=== PATIENT | female | born 1980 | race Caucasian/White ===

== ENCOUNTER 2019-11-05 09:42 | Emergency (ER) | payer SELFPAY ==
--- NOTE | ~2019-11-05 | CT_ITS ---
EXAMINATION: CT abdomen pelvis w con DATE: 11/05/2019 11:45 INDICATION: Abdominal pain. Bloating. TECHNIQUE: Computed tomography (CT) of the abdomen and pelvis was performed with 100 mL Omnipaque 350 intravenous contrast. Automated exposure control and iterative reconstruction technique were employe d. The dose-length product was 1393.97 mGy-cm. COMPARISON: None. FINDINGS: The visualized portions of the lung bases demonstrate mild atelectasis. No pleural effusion . The heart size is normal. No pericardial effusion. The liver, spleen, gallbladder, pancreas, adrena l glands, and kidneys are normal. There is diverticulosis of the colon without evidence of diverticul itis. There are no dilated loops of bowel. The appendix is normal. There are no pathologically enlarg ed lymph nodes. There is no free intraperitoneal fluid. There is mild fat stranding at the root of th e small bowel mesentery. There is mild thoracolumbar spondylosis. There is mild chronic anterior wedg ing of T11-L1 vertebral bodies, likely physiologic. IMPRESSION: 1. Mild fat stranding at the root of the small bowel mesentery, which may be edema or inflammation (m esenteric panniculitis). Reviewed, dictated and finalized at location A. WORK IRONER IMPRESSION: 1. Mild fat stranding at the root of the small bowel mesentery, which may be ed drew or inflammation (mesenteric panniculitis).
--- NOTE | ~2019-11-05 | XR_ITS ---
EXAMINATION: XR chest 2V EXAM DATE: 11/05/2019 10:46 INDICATION: Chest tightness. Shortness of breath. TECHNIQUE: Frontal and lateral projections of the chest obtained and reviewed. There is no prior james dy for comparison. FINDINGS: The lungs are clear. There are no pleural effusions. The cardiomediastinal silhouette is within normal limits. There is no pneumothorax suspected. The bones and soft tissues are unremarkab le. IMPRESSION: No acute cardiopulmonary findings. Reviewed, dictated and finalized at location A. TH CARE ANALYST
[2019-11-05 09:46] VITALS: BP 145/89; PULSE 82; RESP 16; TEMP 36.2; O2SAT 100
--- NOTE | 2019-11-05 10:05 | ECG_ITS ---
Measurements Intervals [place] Rate: 70 P: 30 PA: 147 QRS: -1 QRSD: 85 T: 20 QT: 364 QTc: 393 Interpretive Statements SINUS RHYTHM BASELINE WANDER- I, II NORMAL ECG Electronically Signed On 11-05-2019 12:37:32 [employer]UCIBLE PACKER by Roel Phoenix D.O.
--- NOTE | 2019-11-05 10:10 | ED.ABDPAIN ---
HPI - Abdominal Pain General Chief Complaint: Abdominal Pain Stated Complaint: Abd Pain Time Seen by Provider: 11/05/19 09:57 Source: patient Mode of arrival: ambulatory Limitations: no limitations History of Present Illness HPI narrative: This is a 39 year old female that presents to the ER for abdominal bloating and pain x 1 week. Reports feeling of fullness. Reports epigastric pain that is worse after eating. Reports she has only been able to have small bowel movements. Reports the fullness in her abdomen is making her feel short of breath. Reports a tightness in her chest which is constant and worse with eating as well. Reports she has been doubling her PPI medication without relief. Denies fever, vomiting, dysuria or hematuria. Related Data Home Medications Medication Instructions Recorded Confirmed losartan 11/05/19 metformin 500 mg PO BID 11/05/19 omeprazole 11/05/19 Allergies Allergy/AdvReac Type Severity Reaction Status Date / Time No Known Allergies Allergy Verified 11/05/19 11:17 Review of Systems Review of Systems: Narrative: CONSTITUTIONAL: Denies fever CARDIOVASCULAR: Reports chest pain. Denies edema. RESPIRATORY: Reports dyspnea. GASTROINTESTINAL: Reports abdominal pain, nausea. Denies vomiting, or diarrhea. GENITOURINARY: Denies dysuria or hematuria. MUSCULOSKELETAL: Reports back pain, joint pain, and myalgia. All systems reviewed & are unremarkable except as noted in HPI and below PMFSH Past Medical History Medical History (Updated 11/05/19 @ 13:08 by Aubrie Darden PA-C) History of diabetes mellitus History of gastroesophageal reflux (GERD) History of hypertension Social History Social History (Updated 11/05/19 @ 10:10 by Aubrie Darden PA-C) Smoking status: Never smoker Substance use: former Substance use type: marijuana Exam Narrative: Exam Narrative: GENERAL: Well-appearing, obese, and in no acute distress. HEAD: Normocephalic, atraumatic. EYES: EOMI. CHEST: Clear to auscultation. No respiratory distress. No wheezes rales or rhonchi. Tender to palpation of the mid sternum HEART: Regular rate and rhythm. No murmur heard. Normal peripheral pulses. ABDOMEN: Soft, nondistended, normal active bowel sounds. Mild tenderness to palpation throughout the abdomen, without guarding. No CVA tenderness EXTREMITIES: Normal range of motion. No edema. SKIN: Warm, dry, no rash. NEURO: No focal deficits. Alert and oriented x3. PSYCH: Normal mood and affect Course Consultations Consultation #1: Spoke with Dr. Terrell about patient and work-up who recommends symptomatic management for now and for her to follow-up for further imaging and evaluation outpatient Date: 11/05/19 Time: 13:01 Vital Signs Vital signs: Vital Signs Temperature 97.1 F L 11/05/19 09:46 Pulse Rate 82 11/05/19 09:46 Respiratory Rate 16 11/05/19 09:46 Blood Pressure 145/89 H 11/05/19 09:46 Pulse Oximetry 100 11/05/19 09:46 Temperature 97.1 F L 11/05/19 09:46 Pulse Rate 82 11/05/19 09:46 Respiratory Rate 16 11/05/19 09:46 Blood Pressure 145/89 H 11/05/19 09:46 Pulse Oximetry 100 11/05/19 09:46 MDM - Abdominal Pain MDM Narrative Medical decision making narrative: Patient presents the emergency department for abdominal pain and bloating x1 week. Reports feeling short of breath. Patient is afebrile and nontoxic-appearing. Blood pressure mildly elevated to 145/89, otherwise vitals are normal. CBC without leukocytosis. Metabolic panel without acute changes. UA without evidence of infection. Lactic acid is not elevated. EKG is without acute changes. Chest x-ray is also without acute changes. BNP and troponin are not elevated. PERC criteria negative. CT abdomen pelvis shows nonspecific mild fat stranding at the root of the small bowel mesentery which may be edema or inflammation. Spoke with Dr. Isaac Connelly about patient and work-up who suggests symptomatic management
[2019-11-05 10:36] LABS: Basophils Percent Auto 0.5 % (0.2-1.2); Eosinophils Absolute Auto 0.1 K/mm3 (0-0.3); Eosinophils Percent Auto 1.4 % (0-4.4); Hematocrit 38.1 % (37.0-47.0); Immature Granulocyte Absolute 0.03 K/mm3 (0.00-0.031); Immature Granulocyte Percent A 0.4 % (0-0.5); Lymphocytes Absolute Auto 1.41 K/mm3 (0.9-3.2); Lymphocytes Percent Auto 16.9 % (18.3-44.2); Mean Corpuscular HGB Conc 31.5 g/dl (32-36); Mean Corpuscular Hemoglobin 24.9 pg (26-34); Mean Platelet Volume 10.4 fl (7.4-10.4); Monocytes Absolute Auto 0.6 K/mm3 (0.1-0.6); Monocytes Percent Auto 7.3 % (2.6-8.5); Neutrophils Absolute Auto 6.2 K/mm3 (1.3-6.7); Neutrophils Percent Auto 73.5 % (45.5-73.1); Platelet Count Result 366 k/mm3 (150-375); Red Blood Count 4.82 M/mm3 (4.2-5.4); Red Cell Distribution Width 14.6 % (11.5-14.5); White Blood Count 8.4 K/mm3 (4.5-10.0)
[2019-11-05 10:42] LABS: Add Urine Microscopic? YES; Appearance Urine Cloudy (Clear); Bacteria Urine Trace /hpf; Bilirubin Urine Negative (Negative); Blood Urine Negative (Negative); Color Urine Straw (Yellow); Glucose Urine UA Negative (Negative); Ketones Urine Negative (Negative); Leukocyte Esterase Ur Trace LEU/UL (Negative); Mucus Urine Rare /lpf; Nitrate Urine Negative (Negative); Protein Urine Negative (Negative); RBC Urine 0-2 /hpf (0-2); Specific Grav Ur 1.012 (1.001-1.035); Squamous Epithelial Cell Urine Many /hpf (Few); Urobilinogen Urine Negative mg/dL (<2.0); WBC Urine 0-3 /hpf
[2019-11-05 10:48] LABS: Alanine Aminotransferase 33 U/L (4-35); Albumin Level 4.5 g/dL (3.5-5.1); Alkaline Phosphatase 126 U/L (38-126); Aspartate Amino Transferase 25 U/L (14-36); Bilirubin,Total 0.4 mg/dL (0.2-1.3); Blood Urea Nitrogen 10 mg/dL (7-17); Calcium 9.7 mg/dL (8.4-10.2); Carbon Dioxide 26 mmol/L (22-30); Chloride 97 mmol/L (98-107); Estimated CRCL calculation 115 ml/min; Estimated Glomerular Filt Rate > 60; Glucose 129 mg/dL (65-105); Lipase 74 U/L (23-300); Potassium 4.3 mmol/L (3.4-5.0); Sodium 139 mmol/L (137-145)
[2019-11-05 10:49] LABS: Lactic Acid Reflex 1.8 mmol/L (0.7-2.1); Prothrombin Time 12.4 Seconds (11.1-14.7)
[2019-11-05 10:50] LABS: Partial Thromboplastin Time 28.5 SECONDS (22.3-36.8)
[2019-11-05 10:57] LABS: NT Pro B Type Natriuretic Pept 77 PG/ML (5-100)
[2019-11-05 11:07] LABS: Troponin I < 0.012 ng/mL (0.000-0.034)
[2019-11-05] MEDS: SODIUM CHLORIDE 0.9% IV 1,000 ML 999 ML IV CONT (11:21)
[2019-11-05] MEDS: FAMOTIDINE 20 MG/2 ML VIAL IV PUSH (11:22)
[2019-11-05] MEDS: ONDANSETRON INJ 4 MG/2 ML VIAL IV PUSH (11:23)
[2019-11-05 13:45] VITALS: BP 144/90; PULSE 67; RESP 18; O2SAT 100
== END 2019-11-05 13:56 | disposition home or self-care (01) ==
PROVIDERS: Physician Assistant; Emergency Provider Emergency Medicine
DX: R10.84 Generalized abdominal pain (principal); E11.9 Type 2 diabetes mellitus without complications; K21.9 Gastro-esophageal reflux disease without esophagitis; I10 Essential (primary) hypertension; Z87.440 Personal history of urinary (tract) infections; Z79.84 Long term (current) use of oral hypoglycemic drugs
CPT/HCPCS: 36415; 71046; 74177; 80053; 81001; 81025; 83605; 83690; 83880; 84484; 85025; 85610; 85730; 93005; 96365; 96375; 99284; J0131; J2405; J7030; Q9967

== ENCOUNTER 2019-12-25 21:50 | Emergency (ER) | payer SELFPAY ==
[2019-12-25] VITALS (7 sets, daily range): BP systolic 138–157; BP diastolic 81–97; PULSE 73–90; RESP 14–27; TEMP 36.5; O2SAT 100
--- NOTE | ~2019-12-25 | CT_ITS ---
EXAMINATION: CTA chest PE protocol DATE: 12/26/2019 00:21 INDICATION: Shortness of breath. Chest pain. TECHNIQUE: Computed tomography angiography (CTA) of the chest was performed with 100 mL Omnipaque-350 intravenous contrast timed to evaluate the pulmonary arteries. Coronal maximum intensity projection 3D-reconstructions were created by the technologist. Automated exposure control and iterative reconst ruction technique were employed. The dose-length product was 812.75 mGy-cm. COMPARISON: CT abdomen and pelvis 11/05/2019, chest single view 12/25/2019 FINDINGS: There is no pneumonia or pleural effusion. The heart size is normal. No pericardial effusio n. There is no pulmonary embolus. There are thyroid nodules measuring up to at least 14 mm, likely no t clinically significant. There is diffuse hepatic steatosis. There is mild thoracic spondylosis. IMPRESSION: 1. No pulmonary embolus. Reviewed, dictated and finalized at location A. IMPRESSION: 1. No pulmonary embolus.
--- NOTE | ~2019-12-25 | XR_ITS ---
EXAMINATION: XR chest 1V portable 12/25/2019 22:33 INDICATION: Cough and generalized chest pain. History of hypertension. PROCEDURE: AP portable chest COMPARISON: 11/05/2019 FINDINGS: The lungs are clear. The cardiomediastinal silhouette is within normal limits. There are no pleural effusions. There is no pneumothorax suspected. IMPRESSION: 1: NO ACUTE CARDIOPULMONARY DISEASE. Reviewed, dictated and finalized at location A.
[2019-12-25 22:14] LABS: Glucose Point of Care 140 (65-105)
--- NOTE | 2019-12-25 22:20 | ED.CHESTPAIN ---
HPI - Chest Pain General Chief Complaint: Chest Pain Stated Complaint: CP, low temp Time Seen by Provider: 12/25/19 22:05 Source: RN notes reviewed History of Present Illness HPI narrative: Patient presents emergency department from home for shortness of breath. Patient states she is been feeling short of breath for the past 1 week. She states is associated with intermittent cough. Patient also states chest heaviness over the bilateral chest that is been constant for the past 1 week. Patient notes associated nausea and diarrhea. Denies any abdominal pain. Patient notes chills this evening. Denies any fevers or any other symptoms. Related Data Home Medications Medication Instructions Recorded Confirmed losartan 11/05/19 metformin 500 mg PO BID 11/05/19 omeprazole 11/05/19 Allergies Allergy/AdvReac Type Severity Reaction Status Date / Time No Known Allergies Allergy Verified 12/25/19 22:06 Review of Systems Review of Systems: Narrative: Gen.: Denies fever, reports chills Eyes: Denies eye pain or visual change ENT: Denies congestion Respiratory: Reports shortness of breath and cough CV: Reports chest pain Abdomen: Denies abdominal pain or vomiting, reports nausea and diarrhea Musculoskeletal: Denies back pain or muscle pain Neuro: Denies numbness, tingling, weakness or focal weakness Skin: Denies rash Except as documented, all other systems reviewed and negative PMFSH Past Medical History Medical History History of diabetes mellitus History of gastroesophageal reflux (GERD) History of hypertension Social History Social History Smoking status: Never smoker Substance use: former Substance use type: marijuana Gender identity (if verbalized by the patient): Female Exam Narrative: Exam Narrative: APPEARANCE: No acute distress, nontoxic, resting in bed EYES: EOMI HEENT: Normocephalic, atraumatic, OMM no erythema exudate posterior pharynx RESPIRATORY: No respiratory distress Clear to auscultation bilaterally with no rhonchi wheezing or rales. CARDIOVASCULAR: Regular rate and rhythm without murmurs rubs or gallops. ABDOMINAL: Soft, nontender, nondistended, no rebound or guarding MUSCULOSKELETAl: Moves all extremities. No clubbing, cyanosis or edema. NEURO: Awake and alert. Following commands, speech normal, no focal deficits SKIN:: Warm, dry. No rashes lesions or abrasions PSYCHIATRIC: Normal affect/mood, Course Course Emergency Course: Patient states she does feel improved following breathing treatment Discussed with patient results of workup and diagnosis. Discussed need for follow-up with primary care, proper use of medication, and reasons to return to the emergency department. Patient understands and agrees to current treatment plan. Vital Signs Vital signs: Vital Signs Temperature 97.7 F 12/25/19 22:02 Pulse Rate 88 12/25/19 22:02 Respiratory Rate 22 H 12/25/19 22:02 Blood Pressure 147/97 H 12/25/19 22:02 Pulse Oximetry 100 12/25/19 22:02 Temperature 97.7 F 12/25/19 22:54 Pulse Rate 88 12/26/19 00:59 Respiratory Rate 18 12/26/19 00:59 Blood Pressure 157/90 H 12/25/19 23:31 Pulse Oximetry 100 12/25/19 23:31 MDM - Chest Pain MDM Narrative Medical decision making narrative: Patient has dyspnea of unclear etiology. No wheezing on clinical exam. No PE or pneumonia seen on CT chest patient?s EKG is without high-risk changes. Oxygen saturations are normal. Patient is felt to be a reasonable candidate for additional evaluation as an outpatient.. Patient with no sign of pneumonia on CTA chest or pulmonary embolism. The patient is only symptoms are feelings of chest heaviness shortness of breath that is been constant for the past 1 week with 2- troponins in the ED patient is possible to have Covid does not meet testing criteria and is currently with stab
[2019-12-25] MEDS: SODIUM CHLORIDE 0.9% IV 1,000 ML 999 ML IV CONT (22:25)
[2019-12-25 22:37] LABS: Basophils Absolute Auto 0.1 K/mm3 (0.0-0.1); Basophils Percent Auto 0.5 % (0.2-1.2); Eosinophils Absolute Auto 0.3 K/mm3 (0-0.3); Eosinophils Percent Auto 2.2 % (0-4.4); Hematocrit 38.8 % (37.0-47.0); Hemoglobin 12.5 g/dL (12.0-15.0); Immature Granulocyte Absolute 0.05 K/mm3 (0.00-0.031); Immature Granulocyte Percent A 0.4 % (0-0.5); Lymphocytes Absolute Auto 3.17 K/mm3 (0.9-3.2); Lymphocytes Percent Auto 24.2 % (18.3-44.2); Mean Corpuscular HGB Conc 32.2 g/dl (32-36); Mean Corpuscular Hemoglobin 24.7 pg (26-34); Mean Corpuscular Volume 76.7 fl (80-100); Monocytes Absolute Auto 1.1 K/mm3 (0.1-0.6); Monocytes Percent Auto 8.1 % (2.6-8.5); Neutrophils Absolute Auto 8.5 K/mm3 (1.3-6.7); Neutrophils Percent Auto 64.6 % (45.5-73.1); Platelet Count Result 352 k/mm3 (150-375); Red Blood Count 5.06 M/mm3 (4.2-5.4); Red Cell Distribution Width 14.6 % (11.5-14.5); White Blood Count 13.1 K/mm3 (4.5-10.0)
--- NOTE | 2019-12-25 22:46 | PC.NURSE ---
Pt states she is unable to give urine sample at this time. States she went before she came.
[2019-12-25 22:49] LABS: Alanine Aminotransferase 30 U/L (4-35); Albumin Level 4.4 g/dL (3.5-5.1); Alkaline Phosphatase 117 U/L (38-126); Aspartate Amino Transferase 23 U/L (14-36); Bilirubin,Total 0.2 mg/dL (0.2-1.3); Blood Urea Nitrogen 11 mg/dL (7-17); Calcium 9.3 mg/dL (8.4-10.2); Carbon Dioxide 23 mmol/L (22-30); Chloride 101 mmol/L (98-107); Estimated CRCL calculation 134 ml/min; Estimated Glomerular Filt Rate > 60; Glucose 136 mg/dL (65-105); Lipase 109 U/L (23-300); Potassium 3.4 mmol/L (3.4-5.0); Sodium 136 mmol/L (137-145)
[2019-12-25 22:50] LABS: INR 0.9; Partial Thromboplastin Time 30.3 SECONDS (22.3-36.8); Prothrombin Time 11.8 Seconds (11.1-14.7)
[2019-12-25 22:57] LABS: D Dimer 0.27 ug/mL (<0.48)
[2019-12-25 23:01] LABS: Troponin I < 0.012 ng/mL (0.000-0.034)
[2019-12-25 23:24] LABS: Add Urine Microscopic? NO; Appearance Urine Clear (Clear); Bilirubin Urine Negative (Negative); Blood Urine Negative (Negative); Color Urine Straw (Yellow); Glucose Urine UA Negative (Negative); Ketones Urine Negative (Negative); Leukocyte Esterase Ur Negative LEU/UL (Negative); Nitrate Urine Negative (Negative); Protein Urine Negative (Negative); Specific Grav Ur 1.009 (1.001-1.035); Urobilinogen Urine Negative mg/dL (<2.0)
[2019-12-26] MEDS: IPRATROPIUM BR 0.02% INH SOLN 0.5 MG/2.5 ML VIAL INHALATION (00:50)
[2019-12-26] MEDS: ALBUTEROL SULFATE NEB 2.5 MG/0.5 ML INH 5 MG INHALATION (00:50)
[2019-12-26 00:54] VITALS: PULSE 72; RESP 18
[2019-12-26 00:59] VITALS: PULSE 88; RESP 18
[2019-12-26 01:41] LABS: Troponin I < 0.012 ng/mL (0.000-0.034)
[2019-12-26 02:16] VITALS: BP 142/77; PULSE 88; RESP 18; O2SAT 98
== END 2019-12-26 02:17 | disposition home or self-care (01) ==
PROVIDERS: Emergency Provider Emergency Medicine
DX: J06.9 Acute upper respiratory infection, unspecified (principal); R07.89 Other chest pain; R06.00 Dyspnea, unspecified; Z20.828 Contact with and (suspected) exposure to other viral communicable diseases; E11.9 Type 2 diabetes mellitus without complications; K21.9 Gastro-esophageal reflux disease without esophagitis; I10 Essential (primary) hypertension; Z79.84 Long term (current) use of oral hypoglycemic drugs
CPT/HCPCS: 36415; 71045; 71275; 80053; 81003; 81025; 83690; 84484; 85025; 85380; 85610; 85730; 87804; 94640; 96361; 96365; 99284; J0131; J7030; Q9967

== ENCOUNTER 2021-05-11 00:47 | Emergency (ER) | payer BC, SELFPAY ==
--- NOTE | ~2021-05-11 | CT_ITS ---
EXAMINATION: CT abdomen pelvis w con EXAM DATE: 05/11/2021 03:05 INDICATION: Abdominal pain . TECHNIQUE: Spiral CT of the abdomen and pelvis was performed following intravenous injection of 100 m L Omnipaque 350. Axial, coronal and sagittal images of the abdomen and pelvis were reviewed. The do se-length product (DLP) for this examination was 1267.71 mGy-cm. The exposure was tailored according to patient size (auto mA exposure control), and iterative reconstruction (ASIR) was used as addition al dose reduction technique. There is no prior study for comparison. FINDINGS: There is hepatic steatosis without suspicious focal lesion identified. Spleen, adrenal glan ds, pancreas are unremarkable. Gallbladder is unremarkable. No biliary obstruction. Portal and spl enic veins are patent. Kidneys enhance symmetrically. There is no hydronephrosis. The uterus is n ot identified and has likely been surgically resected. The bladder is unremarkable. There is no ret roperitoneal or pelvic lymphadenopathy. The appendix is normal. The stomach and small bowel are unremarkable. There is mild scattered coloni c diverticulosis. There is no adjacent inflammatory change to suggest diverticulitis. No free intra peritoneal gas. The heart is normal in size. There are no pericardial or pleural effusions. The l caroline bases are unremarkable. There are no osteoblastic or osteolytic lesions identified. IMPRESSION: 1. No acute intra-abdominal findings. 2. Mild colonic diverticulosis. 3. Hepatic steatosis. Reviewed, dictated and finalized at location A.
[2021-05-11 01:10] VITALS: BP 142/88; PULSE 102; RESP 20; TEMP 36.6; O2SAT 99
[2021-05-11 01:51] VITALS: BP 132/88; PULSE 88; RESP 16; TEMP 36.4; O2SAT 100
[2021-05-11 01:53] LABS: Glucose Point of Care 165 mg/dl (65-105)
--- NOTE | 2021-05-11 02:00 | ED.ABDPAIN ---
HPI - Abdominal Pain General Chief Complaint: Abdominal Pain Stated Complaint: ABD PAIN Time Seen by Provider: 05/11/21 01:58 Source: patient Mode of arrival: ambulatory Limitations: no limitations History of Present Illness HPI narrative: Patient is a 40-year-old female complaining of mid abdominal pain, dull, 6 out of 10, accompanied by nausea and diarrhea, described as loose watery nonbloody started approximately 4 hours prior to arrival. Patient denies any vomiting, fever, chills or urinary symptoms. Patient states that she had a total abdominal hysterectomy on 04/19/2021 at [facility]. Related Data Home Medications Medication Instructions Recorded Confirmed losartan 11/05/19 metformin 500 mg PO BID 11/05/19 omeprazole 11/05/19 Allergies Allergy/AdvReac Type Severity Reaction Status Date / Time No Known Allergies Allergy Verified 12/25/19 22:06 Review of Systems Review of Systems: All systems reviewed & are unremarkable except as noted in HPI and below Constitutional: Constitutional: Denies body ache(s), Denies chills, Denies excessive sweating, Denies fatigue, Denies fever(s), Denies headache(s), Denies lethargy, Denies malaise, Denies weakness and Denies weight loss Eyes: Eyes: Denies blurry vision, Denies change in vision and Denies loss of vision ENT: Denies dizziness, Denies ear discharge, Denies headache(s), Denies lip swelling, Denies epistaxis, Denies nasal congestion, Denies neck pain, Denies throat swelling and Denies tongue swelling Cardiovascular: Cardiovascular: Denies chest pain, Denies chest pain at rest, Denies chest pain with activity, Denies diaphoresis, Denies rapid heart rate, Denies edema, Denies irregular heart rhythm, Denies lightheadedness, Denies palpitations, Denies dyspnea and Denies dyspnea on exertion Respiratory: Respiratory: Denies chest congestion, Denies cough, Denies hemoptysis, Denies dyspnea and Denies dyspnea on exertion Gastrointestinal: Gastrointestinal: Denies abdominal pain, Denies melena, Denies hematochezia, Denies diarrhea, Denies nausea, Denies vomiting and Denies hematemesis Musculoskeletal: Musculoskeletal: Denies abnormal gait, Denies deformity, Denies joint swelling, Denies limited range of motion, Denies neck pain and Denies numbness Neurologic: Denies Abnormal speech present, Denies abnormal gait, Denies confusion, Denies dizziness, Denies headache(s), Denies focal weakness, Denies loss of vision, Denies numbness, Denies Other visual disturbances, Denies Sensory deficit (Neuro) and Denies weakness Psychiatric: Psychiatric: Denies confusion, Denies depression, Denies auditory hallucinations, Denies homicidal ideation and Denies suicidal ideation Endocrine: Endocrine: Denies cold intolerance, Denies excessive sweating, Denies fatigue, Denies heat intolerance and Denies palpitations Hematologic/Lymphatic: Hematologic/Lymphatic: Denies easy bleeding and Denies easy bruising Allergic/Immunologic: Allergic/Immunologic: Denies lip swelling, Denies throat swelling and Denies tongue swelling [facility] Past Medical History Medical History (Updated 05/11/21 @ 04:33 by Galo Vallecillo MD) History of diabetes mellitus History of gastroesophageal reflux (GERD) History of hypertension Social History Social History Smoking status: Never smoker Substance use: former Substance use type: marijuana Gender identity (if verbalized by the patient): Female Exam Const: General: cooperative, healthy appearing, comfortable, no acute distress, well developed, alert and awake; No confusion Orientation/consciousness: oriented to person, oriented to place, oriented to time, patient oriented x3 and No confusion Limitations: no limitations HENMT: Head: normal to inspection, normocephalic and atraumatic Ears: hearing grossly normal bilaterally, TM normal on the right and TM normal on the left General nose exam: Norm
[2021-05-11] MEDS: SODIUM CHLORIDE 0.9% IV 1,000 ML 999 ML IV CONT (02:13)
[2021-05-11 02:35] LABS: Basophils Absolute Auto 0.1 K/mm3 (0.0-0.1); Basophils Percent Auto 0.6 % (0.2-1.2); Eosinophils Absolute Auto 0.3 K/mm3 (0-0.3); Eosinophils Percent Auto 2.2 % (0-4.4); Hematocrit 43.2 % (37.0-47.0); Hemoglobin 14.1 g/dL (12.0-15.0); Immature Granulocyte Absolute 0.06 K/mm3 (0.00-0.031); Immature Granulocyte Percent A 0.4 % (0-0.5); Lymphocytes Absolute Auto 2.15 K/mm3 (0.9-3.2); Lymphocytes Percent Auto 15.8 % (18.3-44.2); Mean Corpuscular HGB Conc 32.6 g/dl (32-36); Mean Corpuscular Hemoglobin 27.5 pg (26-34); Mean Corpuscular Volume 84.2 fl (80-100); Mean Platelet Volume 10.6 fl (7.4-10.4); Monocytes Absolute Auto 0.9 K/mm3 (0.1-0.6); Monocytes Percent Auto 6.3 % (2.6-8.5); Neutrophils Absolute Auto 10.2 K/mm3 (1.3-6.7); Neutrophils Percent Auto 74.7 % (45.5-73.1); Platelet Count Result 400 k/mm3 (150-375); Red Blood Count 5.13 M/mm3 (4.2-5.4); Red Cell Distribution Width 13.8 % (11.5-14.5); White Blood Count 13.6 K/mm3 (4.5-10.0)
[2021-05-11 02:43] LABS: Appearance Urine Clear (Clear); Bilirubin Urine 1+ (Negative); Blood Urine 2+ (Negative); Color Urine Yellow (Yellow); Glucose Urine UA Negative (Negative); Ketones Urine Negative (Negative); Leukocyte Esterase Ur Negative LEU/UL (Negative); Nitrate Urine Negative (Negative); Protein Urine 1+ mg/dL (Negative); Specific Grav Ur >= 1.030 (1.001-1.035); Urobilinogen Urine 0.2 mg/dL (<2.0)
[2021-05-11 02:54] LABS: Alanine Aminotransferase 56 U/L (4-35); Albumin Level 4.8 g/dL (3.5-5.1); Alkaline Phosphatase 105 U/L (38-126); Anion Gap 13 mmol/L (8-16); Aspartate Amino Transferase 37 U/L (14-36); Bilirubin,Total 0.5 mg/dL (0.2-1.3); Blood Urea Nitrogen 11 mg/dL (7-17); Calcium 10.2 mg/dL (8.4-10.2); Carbon Dioxide 26 mmol/L (22-30); Chloride 98 mmol/L (98-107); Estimated CRCL calculation 112 ml/min; Estimated Glomerular Filt Rate > 60; Glucose 165 mg/dL (65-110); Lipase 72 U/L (23-300); Potassium 4.5 mmol/L (3.4-5.0); Sodium 137 mmol/L (137-145)
[2021-05-11 03:00] LABS: Bacteria Urine Trace /hpf; Calcium Oxalate Crystals Urine Present /hpf
[2021-05-11 03:07] LABS: Add Urine Microscopic? NO
[2021-05-11 03:27] VITALS: BP 127/81; PULSE 84; RESP 16; O2SAT 100
[2021-05-11] MEDS: KETOROLAC 30 MG/ML VIAL (*BKC) IV PUSH (03:28)
[2021-05-11 05:07] VITALS: BP 122/80; PULSE 80; RESP 16; O2SAT 100
== END 2021-05-11 05:10 | disposition home or self-care (01) ==
PROVIDERS: Emergency Provider Emergency Medicine; PCP Family Medicine
DX: K52.9 Noninfective gastroenteritis and colitis, unspecified (principal); E11.9 Type 2 diabetes mellitus without complications; K21.9 Gastro-esophageal reflux disease without esophagitis; I10 Essential (primary) hypertension
CPT/HCPCS: 36415; 74177; 80053; 81003; 82948; 83690; 85025; 96361; 96374; 99284; J1885; J7030; Q9967